=== PATIENT | female | born 1995 | race American Indian/Alaskan Native ===

== ENCOUNTER 2018-09-22 09:00 | Emergency (ER) | payer OTHER, MEDICAID ==
[2018-09-22] MEDS ORDERED: ZOFRAN IV ONE (09:43)
--- NOTE | 2018-09-22 09:43 | Emergency Department Report ---
HPI - General Chief Complaint: Dizziness Time Seen by Provider: 09/22/18 09:12 - HPI HPI: 23-year-old -[place] female presents to the emergency department with multiple complaints that she believes is secondary to starting Lovenox. The patient is currently about 8 weeks with one previous still , one previous , and 2 previous miscarriages. She has protein S deficiency and usually is on oral anticoagulation, but with this she was just started on Lovenox 1 week ago by her WOUND TREATMENT RN. Her WOUND TREATMENT RN is Dr. Josie Springer Murphy, who she also sees a perinatologist. The patient says that since starting the Lovenox, she started having an intense burning sensation to the extremity where she injects the Lovenox. Over the past week she has had 2 episodes where she has passed out. Last night, after injecting the Lovenox, the patient started having chest pain, abdominal pain, nausea and vomiting. She also describes an event where she had some abdominal fullness, got up from the bed, felt a gush, and noticed some vaginal bleeding. She has not taken anything for her symptoms prior to arrival. ED Past Medical Hx - Past Medical History Previous Medical History?: Yes Additional medical history: Protien S deficiency - Surgical History Past Surgical History?: No - Social History Smoking Status: Never Smoker Substance Use Type: None ED Review of Systems ROS: Stated complaint: 8WKS /LIGHTHEADED/DISCHARGE Other details as noted in HPI Comment: All other systems reviewed and negative Constitutional: denies: chills, fever Eyes: denies: eye pain, vision change ENT: denies: ear pain, throat pain Respiratory: denies: cough, shortness of breath Cardiovascular: chest pain, syncope Gastrointestinal: abdominal pain, nausea, vomiting Genitourinary: denies: dysuria, discharge Musculoskeletal: denies: back pain, arthralgia Skin: denies: rash, lesions Neurological: denies: headache, weakness Physical Exam - Physical Exam Vital Signs: Vital Signs 09/22/18 09:03 Temperature 98.6 F Pulse Rate 89 Respiratory 20 Rate Blood Pressure 101/72 O2 Sat by Pulse 100 Oximetry Physical Exam: GENERAL: The patient is well-developed well-nourished. HEENT: Normocephalic. Atraumatic. Patient has moist mucous membranes. EYES: Extraocular motions are intact. Pupils are equal and reactive to light bilaterally. NECK: Supple. Trachea is midline. CHEST/LUNGS: Clear to auscultation. There is no respiratory distress noted. HEART/CARDIOVASCULAR: Regular. There is no tachycardia. There is no obvious murmur. ABDOMEN: Abdomen is soft, nontender. Patient has normal bowel sounds. There is no abdominal distention. SKIN: Skin is warm and dry. NEURO: The patient is awake, alert, and oriented. The patient is cooperative. The patient has no focal neurologic deficits. The patient has normal speech. CN II - XII grossly intact. MUSCULOSKELETAL: There is no tenderness or deformity. There is no limitation range of motion. There is no evidence of acute injury. ED Course Vital Signs 09/22/18 09:03 Temperature 98.6 F Pulse Rate 89 Respiratory 20 Rate Blood Pressure 101/72 O2 Sat by Pulse 100 Oximetry ED Medical Decision Making - Lab Data Result diagrams: 09/22/18 09:24 09/22/18 09:24 - EKG Data -: EKG Interpreted by Me EKG shows normal: sinus rhythm, axis, intervals, QRS complexes, ST-T waves Rate: normal - EKG Data When compared to previous EKG there are: previous EKG unavailable Interpretation: normal EKG - Radiology Data Radiology results: report reviewed, image reviewed interpreted by me: Chest x-ray does not show any pneumothorax, pleural effusion, pneumonia or obvious focal consolidation. ULTRASOUND OB LESS THAN 14 WEEKS FETUS ULTRASOUND OB TRANSVAGINAL HISTORY: Abdominal pain, vaginal bleeding. COMPARISON: None. TECHNIQUE: Transabdominal and transvaginal ultrasound with color doppler interrogation. FINDINGS: Uterus: 13 x 7 x 8 cm. No uterine fibroid disease is identified. The cervix is unremarkable. Endometrium: An intrauterine gestational sac is identified containing a pole and yolk sac. Heart rate measures 164 beats per minute. [place]-rump length correlates with an 8 week 5 day . The placenta appears to be forming posteriorly. Amniotic fluid volume appears normal. Right ovary: Normal. Left ovary: A 1 cm cyst is noted in the left ovary. No pelvic fluid or mass is identified. Normal color doppler interrogation. IMPRESSION: Viable, single intrauterine as described. No acute abnormality is identified. 1 cm left ovarian cyst. Transcribed By: TTR Dictated By: LUKE SIM JR, MD Electronically Authenticated By: LUKE SIM JR, MD Signed Date/Time: 09/22/18 1240 - Medical Decision Making This 8 week patient presents with some chest pain, dizziness, abdominal discomfort with vaginal bleeding that she believes is a reaction to the Levaquin. She must be on anticoagulation secondary to a proteins S deficiency. On examination the patient does not appear to be in any respiratory or overall distress. EKG did not show any signs of ST elevation [place], ischemia or dysrhythmia. After a lengthy discussion, the patient agrees to a 1 view shielded chest x-ray which did not show any signs of any pneumonia, pneumothorax , focal consolidation, pleural effusions, or any other acute process. Labs are mostly unremarkable including a negative d-dimer and negative troponin. Patient had a transvaginal/obstetrical ultrasound that shows a live intrauterine at 8 weeks 5 days as well as a 1 cm left ovarian cyst. The patient was given some IV fluid resuscitation and a dose of Zofran for her nausea. She was reevaluated multiple times for multiple hours and is feeling improved. We discussed the diagnosis of threatened miscarriage. She has good follow-up with both WOUND TREATMENT RN and perinatology and will contact them today regarding what she should do about the anticoagulation and questionable reaction to the Levaquin. She will return to the ER with any worsening of her symptoms or any acute distress. The patient left here in stable condition. - Differential Diagnosis , threatened miscarriage, spontaneous miscarriage, [place], PE, pneumon Critical Care Time: No Critical care attestation.: If time is entered above; I have spent that time in minutes in the direct care of this critically ill patient, excluding procedure time. ED Disposition Clinical Impression: Threatened miscarriage, Dizziness Qualifiers: Weeks of gestation: 8 weeks Qualified Code(s): Z3A.08 - 8 weeks gestation of Nausea & vomiting Qualifiers: Vomiting type: unspecified Vomiting Intractability: non-intractable Qualified Code(s): R11.2 - Nausea with vomiting, unspecified Disposition: DC-01 TO HOME OR SELFCARE Is pt being admited?: No Condition: Stable Instructions: Threatened Miscarriage (ED), (ED), Acute Nausea and Vomiting (ED), Dizziness (ED) Additional Instructions: Please follow-up with your WOUND TREATMENT RN regarding your , the vaginal bleeding, and what to do about your anticoagulation. Return to the emergency Department with any worsening of your symptoms or any acute distress. Increase your oral rehydration. Referrals: OBGYN, Your [Other] - [facility] Time of Disposition: 13:35
[2018-09-22 09:50] LABS: Basophils % (Auto) 0.5 % (0.0-1.8); Eosinophils # (Auto) 0.1 K/mm3 (0.0-0.4); Eosinophils % (Auto) 2.2 % (0.0-4.3); Hematocrit 36.2 % (30.3-42.9); Hemoglobin 12.3 gm/dl (10.1-14.3); Lymphocytes # (Auto) 1.8 K/mm3 (1.2-5.4); Lymphocytes % (Auto) 34.2 % (13.4-35.0); Mean Corpuscular HGB Conc 34 % (30-34); Mean Corpuscular Volume 92 fl (79-97); Monocytes # (Auto) 0.4 K/mm3 (0.0-0.8); Monocytes % (Auto) 8.3 % (0.0-7.3); Platelet Count 338 K/mm3 (140-440); Red Blood Count 3.95 M/mm3 (3.65-5.03); Red Cell Distribution Width 12.9 % (13.2-15.2)
[2018-09-22 10:00] LABS: INR 0.94 (0.87-1.13)
[2018-09-22 10:08] LABS: Bilirubin,Urine NEG (Negative); Blood,Urine NEG (Negative); Color,Urine Yellow (Yellow); Mucus,Urine FEW /HPF; Protein,Urine <15 mg/dL mg/dL (Negative)
[2018-09-22 10:10] LABS: Amphetamine Screen,Urine PRESUMPTIVE NEGATIVE; Benzodiazepines Screen,Urine PRESUMPTIVE NEGATIVE; Cannabinoid Screen,Urine PRESUMPTIVE NEGATIVE; Cocaine Screen,Urine PRESUMPTIVE NEGATIVE; Methadone Screen,Urine PRESUMPTIVE NEGATIVE; Opiate Screen,Urine PRESUMPTIVE NEGATIVE
[2018-09-22 10:14] LABS: Alanine Aminotransferase 10 units/L (7-56); Albumin 3.9 g/dL (3.9-5); BUN/Creatinine Ratio 12; Blood Urea Nitrogen 6 mg/dL (7-17); Calcium 8.8 mg/dL (8.4-10.2); Hemolysis Index 29
--- NOTE | 2018-09-22 12:09 | XRay Report ---
AP CHEST: HISTORY: chest pain AP view of the chest demonstrates a normal mediastinal and cardiac contour with clear lungs and normal bony and soft tissue structures. IMPRESSION: Unremarkable AP chest.
[2018-09-22] MEDS ORDERED: NACL 0.9% 1000 ML 1,000 ML IV ONE (12:47)
[2018-09-22] MEDS ORDERED: NACL 0.9% 1000 ML 1,000 ML ONE (12:48)
--- NOTE | 2018-09-22 13:02 | Ultrasound Report ---
ULTRASOUND OB LESS THAN 14 WEEKS FETUS ULTRASOUND OB TRANSVAGINAL HISTORY: Abdominal pain, vaginal bleeding. COMPARISON: None. TECHNIQUE: Transabdominal and transvaginal ultrasound with color doppler interrogation. FINDINGS: Uterus: 13 x 7 x 8 cm. No uterine fibroid disease is identified. The cervix is unremarkable. Endometrium: An intrauterine gestational sac is identified containing a pole and yolk sac. Heart rate measures 164 beats per minute. [place]-rump length correlates with an 8 week 5 day . The placenta appears to be forming posteriorly. Amniotic fluid volume appears normal. Right ovary: Normal. Left ovary: A 1 cm cyst is noted in the left ovary. No pelvic fluid or mass is identified. Normal color doppler interrogation. IMPRESSION: Viable, single intrauterine as described. No acute abnormality is identified. 1 cm left ovarian cyst.
[2018-09-22 20:34] VITALS: BP 96/56
== END 2018-09-22 13:40 | disposition home or self-care (01) ==
LOC: ED 09:00
DX: O20.0 Threatened abortion (principal); O21.8 Other vomiting complicating pregnancy; Z91.040 Latex allergy status; Z3A.08 8 weeks gestation of pregnancy; Z91.010 Allergy to peanuts; Z91.013 Allergy to seafood; Z88.8 Allergy status to other drugs, medicaments and biological substances; Z91.018 Allergy to other foods
CPT/HCPCS: 36415; 71045; 76801; 76817; 80053; 80307; 81001; 84443; 84484; 84702; 85025; 85379; 85610; 85730; 93005; 93010; 96361; 96374; 99285; J2405; J7030